=== PATIENT | male | born 1985 ===

== ENCOUNTER 2021-10-07 20:11 | Outpatient (REF) | payer MEDICARE, MEDICAID, SELFPAY ==
[2021-10-07 23:01] LABS: Hemoglobin A1C 10.2 % (<5.7)
[2021-10-07 23:11] LABS: ALT 35 U/L (16-63); AST 28 U/L (15-37); Albumin 3.5 g/dL (3.4-5.0); Alkaline Phosphatase 142 U/L (46-116); Anion Gap 11.4 mmol/L (3-11); BUN 38 mg/dL (7-18); Bilirubin, Total 0.4 mg/dL (0.2-1.0); CO2 26.6 mmol/L (21.0-32.0); Calcium 9.1 mg/dL (8.5-10.1); Chloride 96 mmol/L (98-107); Estimated GFR 37.58 (mL/min/1.73m2); Glucose 252 mg/dL (74-106); Sodium 134 mmol/L (136-145); TSH (W/Ref FT4) 2.33 uIU/mL (0.36-3.74); Total Protein 6.8 g/dL (6.4-8.2)
[2021-10-09 08:24] LABS: Hepatitis B Surface Ab Positive (See Note)
[2021-10-09 08:36] LABS: Hepatitis B Surface Ag Negative (Negative)
[2021-10-09 09:04] LABS: HIV-1/2 Ag & Ab Screen Negative (Negative)
[2021-10-09 09:22] LABS: Hepatitis C Ab w Rflx HCV PCR Negative (Negative)
[2021-10-09 13:34] LABS: Syphilis Serology (RPR) Negative (Negative)
[2021-10-09 15:47] LABS: Chlamydia Result Negative (Negative); GC Result Negative (Negative)
== END 2021-10-07 20:12 | disposition home or self-care (01) ==
LOC: NCHCN 20:11
PROVIDERS: PCP Family Medicine; Visit Provider Nurse Practitioner Family
DX: Z11.59 Encounter for screening for other viral diseases (principal); I10 Essential (primary) hypertension; E11.9 Type 2 diabetes mellitus without complications; Z11.3 Encounter for screening for infections with a predominantly sexual mode of transmission; Z11.4 Encounter for screening for human immunodeficiency virus [HIV]; E66.9 Obesity, unspecified; Z11.8 Encounter for screening for other infectious and parasitic diseases
CPT/HCPCS: 80053; 86706; 86803; 87340; 87389; 87491; 87591; 83036; 84443; 86592